=== PATIENT | female | born 1975 | race Caucasian/White ===

== ENCOUNTER 2019-08-29 14:41 | Emergency (ER) | payer BC, OTHER ==
[2019-08-29 14:53] VITALS: BP 116/77; PULSE 88
--- NOTE | 2019-08-29 14:53 | EDM.PDOC ---
ED HPI GENERAL MEDICAL PROBLEM - General Chief Complaint: Lower Extremity Injury/Pain Stated Complaint: INJURED RT FOOT Time Seen by Provider: 08/29/19 14:43 Source of Information: Reports: Patient History Limitations: Reports: No Limitations - History of Present Illness INITIAL COMMENTS - FREE TEXT/NARRATIVE: HISTORY AND PHYSICAL: History of present illness: Patient is a 43-year-old female who presents to the emergency room with complaints of right ankle pain x2 days. She was attempting to move some heavy luggage around when her foot got caught on the stair and the luggage fell onto both feet. She does have an abrasion to the anterior left foot but complaining of right medial and lateral ankle pain. She does have some bruising and soft tissue swelling noted to the right lateral ankle. She has been weightbearing although this does cause increased pain. She denies any numbness, tingling or weakness of the extremity. Denies any other extremity involvement. Offers no systemic complaints Review of systems: As per history of present illness and below otherwise all systems reviewed and negative. Past medical history: As per history of present illness and as reviewed below otherwise noncontributory. Surgical history: As per history of present illness and as reviewed below otherwise noncontributory. Social history: See social history for further information Family history: As per history of present illness and as reviewed below otherwise noncontributory. Physical exam: General: Developed and well-nourished 43-year-old female. Alert and oriented. Nontoxic-appearing and in no acute distress. HEENT: Atraumatic, normocephalic, pupils equal and reactive bilaterally, negative for conjunctival pallor or scleral icterus, mucous membranes moist, TMs normal bilaterally, throat clear, neck supple, nontender, trachea midline. No drooling or trismus noted. No meningeal signs. No hot potato voice noted. Lungs: Clear to auscultation, breath sounds equal bilaterally, chest nontender. Heart: S1S2, regular rate and rhythm without overt murmur Abdomen: Soft, nondistended, nontender. Skin: Scabbed abrasion noted to top of left anterior foot approximately 1.5cm in diameter. Bruising noted along the solar surface/lateral ankle with soft tissue swelling. Otherwise remaining skin is intact, warm, dry. No lesions or rashes noted. Extremities: Tenderness with palpation of right medial and lateral malleolus. No foot drop. Good flexion and extension at the ankle. Moves all extremities per self without difficulty or deficits, negative for cords or calf pain. Strong pedal and pretibial pulse. +CMS. Neurovascular unremarkable. Neuro: Awake, alert, oriented. Cranial nerves II through XII unremarkable. Cerebellum unremarkable. Motor and sensory unremarkable throughout. Exam nonfocal. Notes: X-ray shows no acute findings. CAM walker boot and crutches given for comfort and to be nonweightbearing over the next 2-3 days. Medication and supportive care measures were reviewed and discussed. Voices understanding and is agreeable to plan of care. Denies any further questions or concerns at this time. Diagnostics: X-ray Therapeutics: CAM walker and crutches Prescription: Tramadol (#15) Impression: Ankle Sprain, Right Plan: 1. Rest, ice, elevate the affected extremity. Please wear the splint and crutches as directed. 2. Tylenol and/or Ibuprofen as needed for pain management. 3. Follow up with the Orthopedic provider as we discussed. Return to the ED as needed and as discussed. Definitive disposition and diagnosis as appropriate pending reevaluation and review of above. right ankle Pain Score (Numeric/FACES): 3 - Related Data Allergies Allergy/AdvReac Type Severity Reaction Status Date / Time latex Allergy Rash Verified 08/29/19 14:50 Home Meds: Home Meds traMADol [Ultram] 50 mg PO Q4H PRN #15 tab 08/29/19 [Rx] Review of Systems - Review of Systems Review Of Systems: Comprehensive ROS is negative, except as noted in HPI. ED EXAM, GENERAL - Physical Exam Exam: See Below (See dictation) Course - Vital Signs Last Recorded V/S: Last Vital Signs Temp 98.1 F 08/29/19 14:51 Pulse 88 08/29/19 14:51 Resp 17 08/29/19 14:51 BP 116/77 08/29/19 14:51 Pulse Ox 97 08/29/19 14:51 Departure - Departure Time of Disposition: 15:19 Disposition: Home, Self-Care 01 Clinical Impression: Ankle sprain Qualifiers: Encounter type: initial encounter Involved ligament of ankle: unspecified ligament Laterality: right Qualified Code(s): S93.401A - Sprain of unspecified ligament of right ankle, initial encounter - Discharge Information Prescriptions: traMADol [Ultram] 50 mg PO Q4H PRN #15 tab PRN Reason: Pain Instructions: Ankle Sprain, [id number] Referrals: PCP,None [Primary Care Provider] - Forms: ED Department Discharge Additional Instructions: The following information is given to patients seen in the emergency department who are being discharged to home. This information is to outline your options for follow-up care. We provide all patients seen in our emergency department with a follow-up referral. The need for follow-up, as well as the timing and circumstances, are variable depending upon the specifics of your emergency department visit. If you don't have a primary care physician on staff, we will provide you with a referral. We always advise you to contact your personal physician following an emergency department visit to inform them of the circumstance of the visit and for follow-up with them and/or the need for any referrals to a consulting specialist. The emergency department will also refer you to a specialist when appropriate. This referral assures that you have the opportunity for follow-up care with a specialist. All of these measure are taken in an effort to provide you with optimal care, which includes your follow-up. Under all circumstances we always encourage you to contact your private physician who remains a resource for coordinating your care. When calling for follow-up care, please make the office aware that this follow-up is from your recent emergency room visit. If for any reason you are refused follow-up, please contact the [facility] Emergency Department at and asked to speak to the emergency department charge nurse. [facility] [address] [place] [address] [id number] [address] [id number] 1. Rest, ice, elevate the affected extremity. Please wear the splint and crutches as directed. 2. Tylenol and/or Ibuprofen as needed for pain management. 3. Follow up with the Orthopedic provider as we discussed. Return to the ED as needed and as discussed. Sepsis Event Note - Focused Exam Vital Signs: Vital Signs Temp Pulse Resp BP Pulse Ox 08/29/19 14:51 98.1 F 88 17 116/77 97 Date Exam was Performed: 08/29/19 Time Exam was Performed: 15:18
--- NOTE | 2019-08-29 15:17 | CR ---
Right ankle: 3 views of the right ankle were obtained. Comparison: No previous ankle study. Small calcification is noted within the distal Achilles tendon at its attachment to the calcaneus. Joint spaces within the ankle are preserved. No acute fracture, dislocation or other bony abnormality is appreciated. Impression: 1. Small calcification within the distal Achilles tendon. 2. Right ankle study is otherwise unremarkable. Diagnostic code #2 Study was dictated in MDT
== END 2019-08-29 15:32 | disposition home or self-care (01) ==
LOC: MW.ED 14:41
DX: S93.401A Sprain of unspecified ligament of right ankle, initial encounter (principal); Z91.040 Latex allergy status; W20.8XXA Other cause of strike by thrown, projected or falling object, initial encounter
CPT/HCPCS: 73610-26-RT; 73610-RT; 99283